=== PATIENT | male | born 1965 | race Caucasian/White ===

== ENCOUNTER 2016-04-07 02:40 | Inpatient (IN) | payer MEDICAID ==
[~2016-04-07] VITALS: Ht 185.4 cm; Wt 91.2 kg
[~2016-04-07 02:40] MED LIST: ASPI-605 PO; ATOR10TA PO; Isosorbide Mononitrate PO; METO25TA20 PO; NICO1PAT28 TD
[2016-04-07] MEDS ORDERED: NITROGLYCERIN PACKET 1 GM PACKET TD ONE (04:30)
[2016-04-07] MEDS ORDERED: NITROGLYCERIN 0.4 MG/TAB BOTTLE SL ONE (04:30)
[2016-04-07] MEDS ORDERED: ASPIRIN 81 MG TAB.CHEW PO ONE (04:30)
[2016-04-07] MEDS ORDERED: ASPIRIN 81 MG TAB.CHEW ONE (04:37)
[2016-04-07] MEDS ORDERED: NITROGLYCERIN 0.4 MG/TAB BOTTLE ONE (04:37)
[2016-04-07] MEDS ORDERED: NITROGLYCERIN PACKET 1 GM PACKET ONE (04:38)
[2016-04-07 05:03] LABS: BASOPHILS % (AUTO) 0.2 % (0.0-2.0); DIFF TOTAL % 100 %; EOSINOPHILS # (AUTO) 0.3 /CMM (0.0-0.7); EOSINOPHILS % (AUTO) 2.4 % (0.0-6.0); HEMATOCRIT 41 % (39-51); HEMOGLOBIN 13.6 g/dL (13.5-17.5); LYMPHOCYTES # (AUTO) 2.6 /CMM (0.8-4.8); LYMPHOCYTES % (AUTO) 21.8 % (20.0-44.0); MEAN CORPUSCULAR HEMOGLOBIN 31 PG (26.0-33.0); MEAN CORPUSCULAR HGB CONC 34 g/dl (31.0-36.0); MEAN CORPUSCULAR VOLUME 91 fL (80-96); MONOCYTES # (AUTO) 0.7 /CMM (0.1-1.30); MONOCYTES % (AUTO) 5.9 % (2.0-12.0); NEUTROPHILS # (AUTO) 8.3 /CMM (1.8-8.9); NEUTROPHILS % (AUTO) 69.7 % (43.0-81.0); PLATELET COUNT (AUTO) 207 /CMM (150-450); RED BLOOD CELL COUNT(AUTO) 4.45 MIL/uL (4.5-6.0); WHITE BLOOD COUNT (AUTO) 11.9 K/uL (4.3-11.0)
[2016-04-07 05:05] LABS: ANION GAP 14 (5-14); CALCIUM, SERUM 9.1 mg/dL (8.5-10.1); CARBON DIOXIDE 26 mmol/L (21-32); CHLORIDE 104 mmol/L (98-107); CREATININE 0.9 mg/dL (0.6-1.3); GFR 89 mL/min (>60); GLUCOSE 104 mg/dL (74-106); POTASSIUM 3.8 mmol/L (3.5-5.1); SODIUM SERUM 140 mmol/L (136-145); UREA NITROGEN, BLOOD 20 mg/dL (7-18)
[2016-04-07 05:12] LABS: TROPONIN I < 0.017 ng/mL (0.00-0.056)
[2016-04-07 05:19] LABS: ALANINE AMINOTRANSFERASE 109 U/L (12-78); ALBUMIN 4.1 g/dL (3.4-5.0); ASPARTATE AMINOTRANSFERASE 45 U/L (15-37); BILIRUBIN,DIRECT 0.1 mg/dL (0.0-0.2); BILIRUBIN,TOTAL 0.6 mg/dL (0.2-1.0); INDIRECT BILIRUBIN 0.5 mg/dL (0.0-1.1); TOTAL PROTEIN, SERUM 7.5 g/dL (6.4-8.2)
[2016-04-07 08:00] VITALS: BP 101/63
[2016-04-07 08:30] VITALS: BP 101/64
[2016-04-07] MEDS ORDERED: NITR0.4T6 SL (08:59)
[2016-04-07] MEDS ORDERED: METO25TA6 PO (08:59)
[2016-04-07] MEDS ORDERED: CLOP75TA2 PO (08:59)
[2016-04-07] MEDS ORDERED: NITROGLYCERIN 0.4 MG/TAB BOTTLE SL PRN (10:00)
[2016-04-07] MEDS: METOPROLOL TARTRATE 25 MG TABLET PO SCH ×2 (10:48→21:08)
[2016-04-07] MEDS: CLOPIDOGREL BISULFATE 75 MG TABLET PO SCH (10:48)
[2016-04-07] MEDS: ASPIRIN EC 81 MG TABLET.DR PO SCH (10:48)
[2016-04-07 12:00] VITALS: BP_SYST 101; BP_SYST 116; BP_DIAS 67; BP_DIAS 72
[2016-04-07] MEDS ORDERED: HYDROCODONE/APAP 5/325MG 1 EACH TABLET PO PRN ×2 (14:30→16:30)
[2016-04-07 16:00] VITALS: BP_SYST 103; BP_DIAS 56; BP_DIAS 66
[2016-04-07] MEDS ORDERED: ZOLPIDEM TARTRATE 5 MG TABLET PO PRN (16:30)
[2016-04-07] MEDS ORDERED: ONDANSETRON HCL/PF 4 MG/2 ML VIAL IVP PRN (16:30)
[2016-04-07] MEDS ORDERED: MAGNESIUM HYDROXIDE 30 ML UDC PO PRN (16:30)
[2016-04-07] MEDS ORDERED: Z GUARD REMEDY 2 OZ OINT TP PRN (16:30)
[2016-04-07] MEDS ORDERED: ACETAMINOPHEN 325 MG TABLET PO PRN (16:30)
[2016-04-07] MEDS ORDERED: MAG HYDROX/AL HYDROX/SIMETH 30 ML UDC PO PRN (16:30)
[2016-04-07] MEDS: ENOXAPARIN SODIUM 40 MG/0.4 ML DISP.SYRIN SQ SCH (16:46)
[2016-04-07 21:41] VITALS: BP 114/76
[2016-04-07] MEDS ORDERED: ATORVASTATIN 10 MG TABLET PO SCH (22:00)
[2016-04-08] VITALS: BP 114/65
[2016-04-08 04:00] VITALS: BP 112/75
[2016-04-08 06:53] LABS: BASOPHILS % (AUTO) 0.4 % (0.0-2.0); DIFF TOTAL % 100 %; EOSINOPHILS # (AUTO) 0.2 /CMM (0.0-0.7); EOSINOPHILS % (AUTO) 2.9 % (0.0-6.0); HEMATOCRIT 40 % (39-51); HEMOGLOBIN 13.3 g/dL (13.5-17.5); LYMPHOCYTES # (AUTO) 2.2 /CMM (0.8-4.8); LYMPHOCYTES % (AUTO) 31.9 % (20.0-44.0); MEAN CORPUSCULAR HEMOGLOBIN 31 PG (26.0-33.0); MEAN CORPUSCULAR HGB CONC 33 g/dl (31.0-36.0); MEAN CORPUSCULAR VOLUME 92 fL (80-96); MONOCYTES # (AUTO) 0.5 /CMM (0.1-1.30); MONOCYTES % (AUTO) 7.3 % (2.0-12.0); NEUTROPHILS # (AUTO) 3.9 /CMM (1.8-8.9); NEUTROPHILS % (AUTO) 57.5 % (43.0-81.0); PLATELET COUNT (AUTO) 190 /CMM (150-450); RED BLOOD CELL COUNT(AUTO) 4.35 MIL/uL (4.5-6.0); WHITE BLOOD COUNT (AUTO) 6.8 K/uL (4.3-11.0)
[2016-04-08 07:26] LABS: ALBUMIN 3.7 g/dL (3.4-5.0); BILIRUBIN,DIRECT 0.1 mg/dL (0.0-0.2); BILIRUBIN,TOTAL 0.6 mg/dL (0.2-1.0); CALCIUM, SERUM 8.9 mg/dL (8.5-10.1); CREATININE 0.9 mg/dL (0.6-1.3); INDIRECT BILIRUBIN 0.5 mg/dL (0.0-1.1); PHOSPHORUS 4.9 mg/dL (2.5-4.9); POTASSIUM 3.5 mmol/L (3.5-5.1); TOTAL PROTEIN, SERUM 7.2 g/dL (6.4-8.2)
[2016-04-08] MEDS ORDERED: PANTOPRAZOLE 40 MG TABLET.DR PO SCH (07:30)
[2016-04-08 08:00] VITALS: BP 98/67
[2016-04-08] MEDS: CLOPIDOGREL BISULFATE 75 MG TABLET PO SCH (08:11)
[2016-04-08] MEDS: ASPIRIN EC 81 MG TABLET.DR PO SCH (08:11)
[2016-04-08] MEDS: METOPROLOL TARTRATE 25 MG TABLET PO SCH (08:13)
[2016-04-08] MEDS: ENOXAPARIN SODIUM 40 MG/0.4 ML DISP.SYRIN SQ SCH (16:05)
[2016-04-08 16:58] VITALS: BP 100/70
== END 2016-04-08 19:00 | disposition short-term general hospital (02) | DRG 203 ==
LOC: ER 02:44 → MED 05:57 → TELE 08:26 → MED 04-08 08:39
PROVIDERS: ADMIT Nurse Practitioner Acute Care; ATTEND Nurse Practitioner Acute Care
DX: M94.0 Chondrocostal junction syndrome [Tietze] (principal); I10 Essential (primary) hypertension; I25.10 Atherosclerotic heart disease of native coronary artery without angina pectoris; E66.9 Obesity, unspecified; E78.5 Hyperlipidemia, unspecified; F17.210 Nicotine dependence, cigarettes, uncomplicated; Z82.49 Family history of ischemic heart disease and other diseases of the circulatory system; R74.0 Nonspecific elevation of levels of transaminase and lactic acid dehydrogenase [LDH]; R73.9 Hyperglycemia, unspecified; Z68.26 Body mass index [BMI] 26.0-26.9, adult; F10.21 Alcohol dependence, in remission
CPT/HCPCS: 36415; 71010-TC; 76700-TC; 80048-TC; 80061-TC; 80076-TC; 83735-TC; 83880; 84100-TC; 84484-TC; 85025-TC; 85378-TC; 87081-TC; A4606; J1650; Z7610

== ENCOUNTER 2017-12-19 11:28 | Inpatient (IN) ==
[~2017-12-19] VITALS: Ht 180.3 cm; Wt 93.4 kg
[~2017-12-19 11:28] MED LIST changes: +CLOP75TA15 PO; -Isosorbide Mononitrate PO; -METO25TA20 PO; +METO25TA6 PO; -NICO1PAT28 TD; +NITR0.4T48 SL
--- NOTE | 2017-12-19 11:30 | NUR ---
PT BIB SELF C/O CP/PRESSURE RADIATING TO L ARM INTERMITTENTLY SINCE YESTERDAY. PT REPORTS CHRONIC CP WHICH HE CONTROLS WITH NITRO BUT HE RAN OUT YESTERDAY. DOES NOT HAVE A TRANSFER PROFESSOR. RESP EVEN UNLABORED. SKIN WARM DRY. REPORTS 5/10 PRESSURE CURRENTLY. NAD NOTED. IN ER BED 05 ON MONITOR.
[2017-12-19 11:59] LABS: BASOPHILS # (AUTO) 0.1 /CMM (0.0-0.2); BASOPHILS % (AUTO) 0.8 % (0.0-2.0); EOSINOPHILS % (AUTO) 3.3 % (0.0-6.0); HEMATOCRIT 44 % (39-51); HEMOGLOBIN 14.6 g/dL (13.5-17.5); LYMPHOCYTES # (AUTO) 1.7 /CMM (0.8-4.8); MEAN CORPUSCULAR HGB CONC 34 g/dl (31.0-36.0); MEAN CORPUSCULAR VOLUME 91 fL (80-96); MONOCYTES # (AUTO) 0.4 /CMM (0.1-1.30); MONOCYTES % (AUTO) 4.5 % (2.0-12.0); NEUTROPHILS % (AUTO) 71.4 % (43.0-81.0); PLATELET COUNT (AUTO) 274 /CMM (150-450); RDW COEFFICIENT OF VARIATION 12.1 (11.5-15.0); RED BLOOD CELL COUNT(AUTO) 4.77 MIL/uL (4.5-6.0); WHITE BLOOD COUNT (AUTO) 8.5 K/uL (4.3-11.0)
[2017-12-19] MEDS ORDERED: ASPIRIN 325 MG TABLET PO ONE (12:00)
[2017-12-19 12:09] LABS: CALCIUM, SERUM 8.8 mg/dL (8.5-10.1); CARBON DIOXIDE 24 mmol/L (21-32); CHLORIDE 105 mmol/L (98-107); GLUCOSE 213 mg/dL (74-106); POTASSIUM 3.8 mmol/L (3.5-5.1); SODIUM SERUM 140 mmol/L (136-145); UREA NITROGEN, BLOOD 12 mg/dL (7-18)
[2017-12-19] MEDS ORDERED: ASPIRIN 325 MG TABLET ONE (12:15)
[2017-12-19 12:19] LABS: INR 0.92 (0.85-1.15); TROPONIN I < 0.017 ng/mL (0.00-0.056)
--- NOTE | 2017-12-19 13:14 | NUR ---
REPORT GIVEN TO DELIVERY MAN SOON FOR ADMISSION
[2017-12-19 13:20] VITALS: BP 107/76
--- NOTE | 2017-12-19 13:25 | NUR ---
PT TRANSPORTED TO [facility] IN STABLE CONDITION VIA ACLS PROTOCOL
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
[2017-12-19] MEDS ORDERED: Z GUARD REMEDY 2 OZ OINT TP PRN (14:30)
[2017-12-19] MEDS ORDERED: ACETAMINOPHEN 325 MG TABLET PO PRN (14:30)
[2017-12-19] MEDS ORDERED: HYDROCODONE/APAP 5/325MG 1 EACH TABLET PO PRN (14:30)
[2017-12-19] MEDS ORDERED: ONDANSETRON HCL/PF 4 MG/2 ML VIAL IVP PRN (14:30)
[2017-12-19] MEDS ORDERED: MAGNESIUM HYDROXIDE 30 ML UDC PO PRN (14:30)
[2017-12-19] MEDS ORDERED: NITROGLYCERIN 0.4 MG/TAB BOTTLE SL PRN (14:30)
[2017-12-19] MEDS ORDERED: MAG HYDROX/AL HYDROX/SIMETH 30 ML UDC PO PRN (14:30)
[2017-12-19] MEDS ORDERED: ZOLPIDEM TARTRATE 5 MG TABLET PO PRN (14:30)
[2017-12-19] MEDS: IV NS 0.9% 1,000 ML IV PRN (15:53)
[2017-12-19 16:00] VITALS: BP 118/77
--- NOTE | 2017-12-19 19:35 | NUR ---
SHOT HOLE SHOOTER OPENING NOTES RECEIVED PATIENT RESTING IN BED, A & O X 4. NO C/O CHEST PAIN VERBALIZED, NO SOB, RESP EVEN & UN LABORED, WATCHING TV AT THIS TIME. ON TELE MONITORING WITH SR 71. CONTINENT/BRP TOLERATED. IV ACCESS TO RFA # 18, INTACT PATENT, RUNNING WITH NS ORDERED. INSTRUCTED THE PATIENT TO INFORM THE NURSE IF FEELS ANY SYMPTOMS, VERBALIZED UNDERSTANDING. BED IN LOW LOCKED POSITION, CALL LIGHT WITHIN REACH. WILL CONTINUE TO MONITOR CLOSELY FOR ANY KRISTA.
--- NOTE | 2017-12-19 19:56 | NUR ---
CLIENT CARE REPRESENTATIVE CLOSING PATIENT RESTING IN BED IN STABLE CONDITION, FAMILY AT BEDSIDE. ENDORSED TO ASSEMBLY INSPECTOR NURSE FOR CONTINUITY OF CARE.
[2017-12-19 20:00] VITALS: BP 126/87
[2017-12-19] MEDS: METOPROLOL TARTRATE 25 MG TABLET PO SCH (21:00)
[2017-12-19] MEDS ORDERED: ENOXAPARIN SODIUM 40 MG/0.4 ML DISP.SYRIN SQ SCH (21:00)
--- NOTE | 2017-12-19 21:48 | NUR ---
PRN AMBIEN GIVEN PATIENT REQUESTED TO GET AMBIEN DUE TO SLEEPLESSNESS. PRN AMBIEN GIVEN. WILL REASSESS FOR EFFECTIVENESS.
--- NOTE | 2017-12-19 21:57 | NUR ---
HELD LOPRESSOR PATIENT'S PULSE NOTED TO BE 58 AT THIS TIME & HAS BEEN BETWEEN 57-64 FOR A WHILE. HELD LOPRESSOR TONIGHT TO PREVENT BRADYCARDIA. BP HAS BEEN STABLE. WILL MONITOR CLOSELY.
[2017-12-19] MEDS ORDERED: ATORVASTATIN 10 MG TABLET PO SCH (22:00)
--- NOTE | 2017-12-19 23:18 | NUR ---
VANESSAIEN EFFECTIVE PATIENT NOTED TO BE SLEEPING COMFORTABLY AT THIS TIME. NO KRISTA NOTED.
[2017-12-20 03:58] VITALS: BP 120/70
[2017-12-20 03:59] VITALS: BP 123/80
[2017-12-20 04:00] VITALS: BP 120/70
--- NOTE | 2017-12-20 04:09 | NUR ---
SORTER PACKER NOTE PATIENT REFUSED IVF TO BE CONNECTED TO HIM AT THIS TIME, DESPITE OF RISK & BENEFITS EXPLANATIONS, STATED THAT HE WANTS TO SLEEP & IV LINE HAS BEEN BOTHERING HIM. WILL RECHECK WITH THE PATIENT WHEN WAKES UP TO CONTINUE IVF ORDERED.
--- NOTE | 2017-12-20 06:05 | NUR ---
REFUSED AM LABS PATIENT REFUSED AM LABS/TROPONIN LEVEL TO BE DONE DESPITE OF EXPLAINING RISKS & BENEFITS, PT CONTINUED REFUSING AM LAB BLOOD DRAW. SOURCING ENGINEER WILL COME BACK AGAIN TO TRY TO DRAW THE BLOOD FOR LABS.
--- NOTE | 2017-12-20 06:35 | NUR ---
PROFESSIONAL BENEFITS SALES CONSULTANT CLOSING NOTES PATIENT SLEPT WELL AT NIGHT, A & O X 4. NO C/O CHEST PAIN OR ANY OTHER PAIN VERBALIZED, NO SOB, RESP EVEN & UNLABORED. ON TELE MONITORING WITH SR 64. CONTINENT/BRP TOLERATED. IV ACCESS TO RFA # 18, INTACT PATENT, REFUSED TO BE CONNECTED TO IVF DESPITE OF EXPLANATIONS OF RISK & BENEFITS. PT IS NPO EXCEPT MEDS ORDERED FOR POSSIBLE STRESS TEST & PT IS AWARE. INSTRUCTED THE PATIENT TO INFORM THE NURSE IF FEELS ANY SYMPTOMS, VERBALIZED UNDERSTANDING. BED IN LOW LOCKED POSITION, CALL LIGHT WITHIN REACH. WILL ENDORSE TO AM RN FOR CONTINUITY OF CARE.
[2017-12-20] MEDS: IV NS 0.9% 1,000 ML IV PRN (06:53)
--- NOTE | 2017-12-20 07:43 | NUR ---
TEXTILE SCRAP SALVAGER NOTE RECEIVED PATENT IN BED . ALERT ORIENTED ON TELE MONITOR SR 67 , NO SOB NOTED , RT FA HL INTACT BUT REFUSING TO INFUSE IVF ,WILL CONT TO ENCOURAGED, KEEP NPO FOR POSSIBLE STRES TEST TODAY , BED IN LOWEST AND LOCKED POSITION , WILL CONT TO MONITOR CLOSELY
[2017-12-20 08:00] VITALS: BP 109/62
[2017-12-20] MEDS: METOPROLOL TARTRATE 25 MG TABLET PO SCH (08:58)
[2017-12-20] MEDS ORDERED: CLOPIDOGREL BISULFATE 75 MG TABLET PO SCH (09:00)
[2017-12-20] MEDS ORDERED: REGADENOSON 0.4 MG/5 ML DISP.SYRIN IVP ONE (09:00)
[2017-12-20] MEDS ORDERED: ASPIRIN EC 81 MG TABLET.DR PO SCH (09:00)
[2017-12-20 09:03] VITALS: BP 109/62
--- NOTE | 2017-12-20 09:10 | NUR ---
SET DECORATOR NOTE PER DR FORTUNE WILL DO STRESS TEST ,,OK TO GIVE PO MEDS CONSENT SIGHED BY PATIENT
--- NOTE | 2017-12-20 12:13 | NUR ---
CHANNEL PROCESS PLANT OPERATOR NOTE TAKEN TO STRESS TEST
--- NOTE | 2017-12-20 15:00 | NUR ---
MS RN NOTES PER DR LORENA MCMILLAN TO D/C IV FLUIDS AND POSSIBLE DISCHARGE IF CLEARED BY COMMISSARY WORKER
--- NOTE | 2017-12-20 17:10 | NUR ---
fisheries technician met with patient at bedside. He lives locally, rents a room with friend/roommate. He is ambulatory and independent with adl's. Denies DME and homehealth needs. List of local [facility] provided for patient to follow up for pcp. Advised to return to hospital if symptoms worsen or failed to improve. Patient verbalized understanding of dc instructions and agreed with current dc plan. Addendum: 12/20/17 at 2111 by MYRA TILLMAN RN Amended: Links added.
--- NOTE | 2017-12-20 18:20 | NUR ---
MS RN NOTE PER DR LORENA MCMILLAN TO DISCHARGE HOME , D\C INSTRUCTION GIVEN UNDERSTOOD , PER CASE MANAGED WILL [facility] , ALSO DR CARRILLO AWARE , HL REMOVED , NO S\S INFECTION NOTED ,NO BLEEDING NOTED , INSTRUCTED TO FOLLOW UP WITH DOCTOR AT [facility] AND RETURN FOR WORSENING SYMPTOMS,WILL CALL [facility] , VOUCHER GIVEN TO PATIENT Addendum: 12/20/17 at 1824 by WONG POWELL RN BELONGING SIGNED
--- NOTE | 2017-12-20 18:36 | NUR ---
MS RN NOTE TAXI VOUCHER GIVEN TO PATIENT, LEFT HOSPITAL WITH GOOD CONDITION , TAKEN HOME BY BY [facility]
== END 2017-12-20 18:30 | disposition home or self-care (01) | DRG 243 ==
LOC: ER 11:29 → TELE1 12:59 → MEDSG1 12-20 10:04
PROVIDERS: ADMIT Internal Medicine; ATTEND Internal Medicine
DX: K21.9 Gastro-esophageal reflux disease without esophagitis (principal); E78.5 Hyperlipidemia, unspecified; I25.10 Atherosclerotic heart disease of native coronary artery without angina pectoris; I10 Essential (primary) hypertension; Z95.5 Presence of coronary angioplasty implant and graft; I25.2 Old myocardial infarction; F17.210 Nicotine dependence, cigarettes, uncomplicated; Z79.82 Long term (current) use of aspirin; Z79.899 Other long term (current) drug therapy; Z91.19 Patient's noncompliance with other medical treatment and regimen
CPT/HCPCS: 36415; 71045-TC; 80048-TC; 84484-TC; 85025-TC; 85730-TC; 87081-TC; 93307-TC; A4606; A9502; G0378; J1650; J2785; J7030; Q2036; Z7610